=== PATIENT | male | born 1950 ===

== ENCOUNTER 2021-01-18 16:46 | Emergency (ER) | payer BC ==
[~2021-01-18] VITALS: Ht 167.6 cm; Wt 79.4 kg
[2021-01-18] MEDS ORDERED: AMLODIPINE-OLM1 EAC2 PO (17:08)
[2021-01-18] MEDS ORDERED: LIPITOR20 MG PO (17:08)
== END 2021-01-18 21:34 | disposition home or self-care (01) ==
LOC: ER 16:46
DX: K52.89 Other specified noninfective gastroenteritis and colitis (principal); Z03.818 Encounter for observation for suspected exposure to other biological agents ruled out